=== PATIENT | female | born 1995 | race African-American/Black ===

== ENCOUNTER 2017-05-07 12:03 | Emergency (ER) | payer OTHER ==
[~2017-05-07] VITALS: Ht 157.5 cm; Wt 78.6 kg
[~2017-05-07 12:03] MED LIST: NAPROSYN500 MG PO
[2017-05-07] MEDS ORDERED: FIORICET,ESG1 TABLET PO (15:09)
[2017-05-07 15:20] VITALS: BP 135/76
== END 2017-05-07 15:28 | disposition home or self-care (01) ==
LOC: EME 12:03
DX: R51 Headache (principal)
CPT/HCPCS: 99281; 99284